=== PATIENT | female | born 1985 | race Caucasian/White ===

== ENCOUNTER → 2017-05-02 | Outpatient (CLI) | payer OTHER | LOC: FIMAGING 07:48 | PROVIDERS: ATTEND Obstetrics & Gynecology | DX: Z34.82 Encounter for supervision of other normal pregnancy, second trimester (principal); Z3A.21 21 weeks gestation of pregnancy ==

== ENCOUNTER 2017-09-08 14:54 | Inpatient (IN) | payer OTHER ==
[2017-09-08] MEDS ORDERED: OLIVE OIL 118 ML BTL MISC PRN (15:28)
[2017-09-08] MEDS ORDERED: TERBUTALINE SULFATE 1 MG/ML VIAL IV PRN (15:28)
[2017-09-08] MEDS ORDERED: EPSOM SALT 454 GM TP PRN (15:28)
[2017-09-08] MEDS ORDERED: LR 1,000 ML IV PRN (15:28)
[2017-09-08] MEDS ORDERED: OXYTOCIN 20 UNIT in LR 1,000 ML IV PRN (15:28)
--- NOTE | 2017-09-08 15:51 | PDGENHP ---
History and Physical - Chief Complaint pt complains of leaking/gushing fluid @ 1151 - History of Present Illness This is [id number] with IUP@ 39-6wks (by Tyson/Dequan) that presents to L&D with complaints of having a large gush of fluid @ 1151. She does report regular contractions. She reports contractions q 5 min, lasting approx 1 min. She denies any VB. She reports +FM. She denies any CP, SOB, HAs, visual changes. She is planning an unmedicated and would like low intervention. History Information - Allergies/Home Medication List Allergies/Adverse Reactions: No Known Allergies Allergy (Unverified 09/08/17 15:26) Home Medications: Herbals/Supplements -Info Only 09/08/17 [Last Taken 09/08/17 08:00] Vit27&Calcium/Iron/FA [ Rx 1 Tablet (RX)] 1 each PO DAILY 09/08 [Last Taken 09/08/17 08:00] I have personally reviewed and updated: family history, medical history, social history, surgical history - Past Medical History no pertinent PMH - Surgical History Reports: no pertinent surgical hx - Social History Smoking Status: Never smoked Alcohol Use: None Drug Use: None Review of Systems Review of Systems: ROS: 10pt was reviewed & negative except for what was stated in HPI & below Constitutional: Reports: no symptoms EENMT: Reports: no symptoms Cardiac: Reports: no symptoms Respiratory: Reports: no symptoms Gastrointestinal: Reports: no symptoms Genitourinary: Reports: no symptoms Muscolosketal: Reports: no symptoms Skin: Reports: no symptoms Neurological: Reports: no symptoms Hematologic/Lymphatic: Reports: no symptoms Physical Exam Physical Exam: Constitutional: no apparent distress Eyes: PERRL Ears, Nose, Mouth, Throat: moist mucous membranes, hearing normal Cardiovascular: regular rate and rhythym, no murmur, rub, or gallop Respiratory: no respiratory distress, no rales or rhonchi Gastrointestinal: soft, non-tender abdomen Genitourinary: no bladder fullness Skin: warm, normal color Musculoskeletal: full muscle strength Neurologic: AAOx3 Psychiatric: interacting appropriately, not anxious, not encephalopathic Lab Data & Imaging Review 09/08/17 15:20 Assessment & Plan Assessment: [id number] with IUP@ 39-6wks by L/10 Early labor GBS Negative Cat 1 FHR Tracing Plan: Admit to L&D expectant management main management PRN reassess 2 hr/PRN anticipate
[2017-09-08 16:09] LABS: % IMMATURE GRANULYOCYTES 2.1 % (0.0-1.1); ABSOLUTE IMMATURE GRANULOCYTES 0.22 10^3/uL (0.00-0.10); ADD DIFF? NO; ADD MORPH? NO; ADD SCAN? NO; ATYPICAL LYMPHOCYTE FLAG 0 (0-99); FRAGMENT RBC FLAG 0 (0-99); HEMATOCRIT 36.1 % (38.0-47.0); HEMOGLOBIN 12.6 g/dL (12.6-16.3); LEFT SHIFT FLG 10 (0-99); LIPEMIA HEMOLYSIS FLAG 90 (0-99); MEAN CELL HEMOGLOBIN 34.1 pg (27.9-34.1); MEAN CELL HEMOGLOBIN CONCENTR. 34.9 g/dL (32.4-36.7); MEAN CELL VOLUME 97.8 fL (81.5-99.8); MEAN PLATELET VOLUME 11.6 fL (8.7-11.7); PLATELET CLUMPS FLAG 30 (0-99); PLATELET COUNT 253 10^3/uL (150-400); RED BLOOD CELL COUNT 3.69 10^6/uL (4.18-5.33); RED CELL DISTRIBUTION WIDTH 13.5 % (11.5-15.2)
[2017-09-08] MEDS ORDERED: OLIVE OIL 118 ML BTL ONE (16:31)
[2017-09-08] MEDS ORDERED: LIDOCAINE 1% 300 MG/30 ML SDV ONE (16:31)
[2017-09-08] MEDS ORDERED: MISOPROSTOL 200 MCG TAB ONE (16:32)
[2017-09-08] MEDS ORDERED: OXYTOCIN 10 UNIT/ML VIAL ONE (16:32)
[2017-09-08] MEDS ORDERED: AMMONIA AROMATIC 1 EACH AMP IH ONE (16:32)
[2017-09-08] MEDS: IBUPROFEN 600 MG TAB PO PRN (18:20)
--- NOTE | 2017-09-08 19:19 | OBDEL ---
Info Type: Vaginal Presentation at Delivery: Vertex L&D Analgesia/Anesthesia Type: Local GBS+: No Intrapartum Medications: Generic Name Dose Route Start Last Admin Trade Name Freq PRN Reason Stop Dose Admin Ibuprofen 600 mg 09/08/17 15:28 09/08/17 18:20 Motrin PO 03/07/18 15:27 600 mg Q6HRS PRN Administration post , inflammation Indications for Delivery: Spontaneous Labor, SROM Vaginal Delivery - Delivery Provider Delivery Physician/CNM: Tonie Putnam - Labor and Delivery Onset of Contractions Date: 09/08/17 Onset of Contractions Time: 12:15 Onset of Contractions Type: Spontaneous Rupture of Membranes Date: 09/08/17 Rupture of Membranes Time: 11:51 Rupture of Membranes Type: Spontaneous Amniotic Fluid Color: Clear Dilation Complete Date: 09/08/17 Dilation Complete Time: 17:45 Placenta Delivery Date: 09/08/17 Placenta Delivery Time: 18:04 Total Hours of Labor: 5 Laceration: 1st Degree, Other (Specify) (labial- bilateral) Repair: 3-0, Vicryl Vaginal Sponge Count Correct: Yes Vaginal Needle Count Correct: Yes Vaginal Sweep Performed: Yes EBL: 250 Delivery Events: None Data [facility] Delivery Date: 09/08/17 Delivery Time: 17:55 ARNALDO: 09/09/17 Gestational Age: 39 week(s) and 6 day(s) Sex of Infant: Female Weight (gm): 0 g Score (1 Min): 8 Score (5 Min): 9 ICD10 Worksheet Patient Problems: Problems Problem Status Onset (normal spontaneous vaginal delivery) Acute - ICD10 Problem Qualifiers (1) (normal spontaneous vaginal delivery)
[2017-09-08] MEDS ORDERED: ACETAMINOPHEN 325 MG TAB PO PRN (19:23)
[2017-09-08] MEDS ORDERED: HYDROCORTISONE 0.5% CREAM TP PRN (19:23)
[2017-09-08] MEDS ORDERED: DOCUSATE SODIUM 100 MG CAP PO PRN (19:23)
[2017-09-08] MEDS ORDERED: HYDROCODONE/APAP 5/325 TAB PO PRN (19:23)
[2017-09-08] MEDS ORDERED: SIMETHICONE 80 MG TAB CHEW PO PRN (19:23)
[2017-09-08] MEDS: PROCTOFOAM HC 10 GM CAN PR SCH (22:09)
[2017-09-09] MEDS: IBUPROFEN 600 MG TAB PO PRN ×4 (00:16→18:17)
[2017-09-09 01:11] VITALS: RESP 18
[2017-09-09] MEDS: PROCTOFOAM HC 10 GM CAN PR SCH ×3 (06:04→18:18)
[2017-09-09 10:03] VITALS: BP 121/74; PULSE 106; O2SAT 96
[2017-09-09 10:38] VITALS: TEMP 97.6
--- NOTE | 2017-09-09 12:37 | OBPP ---
Progress Note Assessment/Plan: Assessment: 32 y/o PPD #1 s/p doing well. Plan: Pt desires to d.c home today @ 24 hours if baby is ready. She declines Rx Ibuprofen. Follow-up @ [facility] 4 and 6 weeks. 09/09/17 12:37 Subjective/ Course: 09/09/17 12:33 Pt is doing well this am. She has good pain control with Ibuprofen only, min cramping. She has ambulated and voiding and has min lochia. She is working on breast feeding and baby is doing well. Objective: 09/08/17 15:20 Patient ABO/Rh O POSITIVE 09/08/17 15:20 Temp Pulse Resp BP Pulse Ox 36.4 C 106 H 18 121/74 H 96 09/09/17 09:45 09/09/17 09:45 09/09/17 09:45 09/09/17 09:45 09/09/17 09:45 Uterine Position/Fundal Height: Umbilicus -2 Uterine Tone: Firm Physical Exam - Physical Exam Neck: non-tender, full range of motion, supple Respiratory: chest non-tender, lungs clear, normal breath sounds Cardiac/Chest: regular rate, rhythm Abdomen: normal bowel sounds Extremities: swelling (no), Patience's sign (neg)
--- NOTE | 2017-09-09 12:40 | OBGCSDC ---
General Delivery Information - General Info : 2 Para: 2 Abortions: 0 Type: Vaginal L&D Analgesia/Anesthesia Type: Local Admission Date: 09/08/17 Labs: Patient ABO/Rh O POSITIVE 09/08/17 15:20 Hct 36.1 % (38.0-47.0) L 09/08/17 15:20 - Hospital Course : 09/09/17 12:33 Pt is doing well this am. She has good pain control with Ibuprofen only, min cramping. She has ambulated and voiding and has min lochia. She is working on breast feeding and baby is doing well. Vaginal - Delivery Provider Delivery Physician/CNM: Tonie Putnam - Diagnosis Labor: Spontaneous Rupture of Membranes Type: Spontaneous Amniotic Fluid Color: Clear Laceration: 1st Degree, Other (Specify) (labial- bilateral) Repair: 3-0, Vicryl Delivery Events: None - Delivery EBL: 250 [place] Data Moralez Delivery Date: 09/08/17 Delivery Time: 17:55 ARNALDO: 09/09/17 Gestational Age: 40 week(s) and 0 day(s) Sex of : Female Weight (gm): 0 g Score (1 Min): 8 Score (5 Min): 9 Discharge Information - Discharge Information Instruction/Follow Up: Four Weeks, Six Weeks
== END 2017-09-09 19:50 | disposition home or self-care (01) | DRG 775 ==
LOC: OBSVTOIN 14:54 → FLD 14:54 → FOB 20:27
PROVIDERS: ADMIT Advanced Practice Midwife; ATTEND Obstetrics & Gynecology
DX: O48.0 Post-term pregnancy (principal); O70.0 First degree perineal laceration during delivery; Z3A.39 39 weeks gestation of pregnancy; Z37.0 Single live birth